=== PATIENT | female | born 1990 | race Caucasian/White ===

== ENCOUNTER → 2019-05-21 | Outpatient (CLI) | payer OTHER, BC ==
[2015-06-24 03:55] VITALS: BP 166/99
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
== END | disposition home or self-care (01) ==
LOC: KCIC 09:05
PROVIDERS: ATTEND Internal Medicine
DX: M25.521 Pain in right elbow (principal)
CPT/HCPCS: 73080